=== PATIENT | female | born 1995 | race Hispanic/Latino ===

== ENCOUNTER 2020-01-04 20:41 | Emergency (ER) | payer OTHER ==
[~2020-01-04] VITALS: Ht 160 cm; Wt 104.3 kg
--- OUTSIDE RECORDS SUMMARY | 2020-01-04 20:44 | XMS REPORT ---
[facility] Address Unknown Phone Unavailable Care Team Providers Care Financial Planning Adviser Name Role Phone Unavailable Unavailable Payers Payer Name Policy Type Policy Number Effective Date Expiration Date Problems This patient has no known problems. Allergies, Adverse Reactions, Alerts Allergy Name Allergy Type Status Severity Reaction(s) Onset Date Inactive Date Treating Clinician Comments No Known Allergies DA Active U 2019-06-08 00:00:00 Medications This patient has no known medications. Results Test Description Test Time Test Comments Text Results Atomic Results Result Comments AB LIVER-KIDNEY MICROSOMAL 2019-06-10 14:43:00 AB LIVER-KIDNEY MICROSOMAL (test code=MICRLKAB) 1.0 Units 0.0-20.0 Negative 0.0 - 20.0 Equivocal 20.1 - 24.9 Positive >24.9LKM type 1 antibodies are detected in patients withautoimmune hepatitis type 2 and in up to 8% ofpatients with chronic HCV infection.Performed At: [facility] [id number] Lozoya MD Ph:[phone] CBC W/AUTO [id number] 06:13:00* Test Item Value Reference Range Comments WHITE BLOOD CELL (test code=WBC) 11.4 K/mm3 6.6-12.1 Results verified by repeat analysis RED BLOOD CELL (test code=RBC) 3.07 M/mm3 3.45-5.01 HEMOGLOBIN (test code=HGB) 9.3 g/dL 10.7-13.9 HEMATOCRIT (test code=HCT) 27.4 % 32.1-42.1 MEAN CELL VOLUME (test code=MCV) 89 fL 84.1-94.8 MEAN CELL HGB (test code=MCH) 30.3 pg 27-35 MEAN CELL HGB CONCETRATION (test code=MCHC) 33.9 gm/dL 32.2-34.1 RED CELL DISTRIBUTION WIDTH (test code=RDW) 13.2 % 12.4-16.5 PLATELET COUNT (test code=PLT) 211 K/mm3 133-385 IMMATURE PLATELET FRACTION (test code=IPF) 0.0 % 0.0-10.8 MEAN PLATELET VOLUME (test code=MPV) 10.9 fl 9.1-12.7 NEUTROPHIL % (test code=NT%) 80.1 % 56.5-79.4 LYMPHOCYTE % (test code=LY%) 12.6 % 14.3-34.3 MONOCYTE % (test code=MO%) 6.5 % 5.1-10.4 EOSINOPHIL % (test code=EO%) 0.0 % 0.1-3.0 BASOPHIL % (test code=BA%) 0.2 % 0.1-1.0 NEUTROPHIL # (test code=NT#) 9.2 K/mm3 LYMPHOCYTE # (test code=LY#) 1.4 K/mm3 MONOCYTE # (test code=MO#) 0.7 K/mm3 EOSINOPHIL # (test code=EO#) 0 K/mm3 BASOPHIL # (test code=BA#) 0.0 K/mm3 RBC MORPHOLOGY REQUIRED (test code=RBCM) NORMAL NORMAL PLATELET MORPHOLOGY REQUIRED (test code=PLTMR) NORMAL NORMAL AG HEPATITIS B [id number] 16:14:00* Test Item Value Reference Range Comments AG HEPATITIS B SURFACE (test code=HBSAG) NONREACTIVE NONREACTIVE IS CONSENT FORM SIGNED FOR HIV TESTING? YAB HEPATITIS C [id number] 16:14:00* Test Item Value Reference Range Comments AB HEPATITIS C (test code=HCVAB) NONREACTIVE NONREACTIVE SIGNAL TO CUTOFF (test code=CUTOFF) <0.02 <0.80 IS CONSENT FORM SIGNED FOR HIV TESTING? YAB [id number] 16:14:00* Test Item Value Reference Range Comments AB TREPONEMA (test code=TREPAB) NONREACTIVE NONREACTIVE IS CONSENT FORM SIGNED FOR HIV TESTING? YAB HIV 1 16:14:00* Test Item Value Reference Range Comments AB HIV 1 2 (test code=NFM51RM) NONREACTIVE NONREACTIVE Done by [employer] HIV Ag/Ab Combo Screen IS CONSENT FORM SIGNED FOR HIV TESTING? YAG HEPATITIS B [id number] 15:46:00* Test Item Value Reference Range Comments AG HEPATITIS B SURFACE (test code=HBSAG) NONREACTIVE NONREACTIVE IS CONSENT FORM SIGNED FOR HIV TESTING? YAB HEPATITIS C [id number] 15:46:00* Test Item Value Reference Range Comments AB HEPATITIS C (test code=HCVAB) NONREACTIVE SIGNAL TO CUTOFF (test code=CUTOFF) <0.80 IS CONSENT FORM SIGNED FOR HIV TESTING? YAB [id number] 15:46:00* Test Item Value Reference Range Comments AB TREPONEMA (test code=TREPAB) NONREACTIVE NONREACTIVE IS CONSENT FORM SIGNED FOR HIV TESTING? YAB HIV 1 15:46:00* Test Item Value Reference Range Comments AB HIV 1 2 (test code=JBC08ZS) NONREACTIVE IS CONSENT FORM SIGNED FOR HIV TESTING? YCOMPREHENSIVE METABOLIC [id number] 15:11:00* Test Item Value Reference Range Comments SODIUM (test code=NA) 139 mEq/L 135-145 POTASSIUM (test code=K) 4.2 mEq/L 3.5-5.0 CHLORIDE (test code=CL) 108 mEq/L 100-115 CARBON DIOXIDE (test code=CO2) 20 mEq/L 22-31 ANION GAP (test code=GAP) 15.20 10-20 GLUCOSE (test code=GLU) 82 mg/dL 65-110 BLOOD UREA NITROGEN (test code=BUN) 9 mg/dL 7-18 GLOMERULAR FILTRATION RATE (test code=GFR) 104 ml/min >60 CREATININE (test code=CREAT) 0.7 mg/dL 0.5-1.0 TOTAL PROTEIN (test code=PROT) 5.8 gm/dL 6.3-8.2 ALBUMIN (test code=ALB) 2.4 gm/dL 3.4-4.8 CALCIUM (test code=CA) 8.9 mg/dL 8.4-10.2 BILIRUBIN TOTAL (test code=BILT) 0.2 mg/dL 0.2-1.0 SGOT/AST (test code=AST) 20 units/L 15-37 SGPT/ALT (test code=ALT) 19 units/L 12-78 ALKALINE PHOSPHATASE TOTAL (test code=ALKP) 184 units/L 46-116 CBC W/AUTO [id number] 15:10:00* Test Item Value Reference Range Comments WHITE BLOOD CELL (test code=WBC) 7.3 K/mm3 6.6-12.1 RED BLOOD CELL (test code=RBC) 3.69 M/mm3 3.45-5.01 HEMOGLOBIN (test code=HGB) 10.9 g/dL 10.7-13.9 HEMATOCRIT (test code=HCT) 33.7 % 32.1-42.1 MEAN CELL VOLUME (test code=MCV) 91 fL 84.1-94.8 MEAN CELL HGB (test code=MCH) 29.5 pg 27-35 MEAN CELL HGB CONCETRATION (test code=MCHC) 32.3 gm/dL 32.2-34.1 RED CELL DISTRIBUTION WIDTH (test code=RDW) 13.6 % 12.4-16.5 PLATELET COUNT (test code=PLT) 221 K/mm3 133-385 IMMATURE PLATELET FRACTION (test code=IPF) 0.0 % 0.0-10.8 MEAN PLATELET VOLUME (test code=MPV) 11.1 fl 9.1-12.7 NEUTROPHIL % (test code=NT%) 65.0 % 56.5-79.4 LYMPHOCYTE % (test code=LY%) 22.9 % 14.3-34.3 MONOCYTE % (test code=MO%) 10.1 % 5.1-10.4 EOSINOPHIL % (test code=EO%) 0.7 % 0.1-3.0 BASOPHIL % (test code=BA%) 0.6 % 0.1-1.0 NEUTROPHIL # (test code=NT#) 4.7 K/mm3 LYMPHOCYTE # (test code=LY#) 1.7 K/mm3 MONOCYTE # (test code=MO#) 0.7 K/mm3 EOSINOPHIL # (test code=EO#) 0.05 K/mm3 BASOPHIL # (test code=BA#) 0.0 K/mm3 RBC MORPHOLOGY REQUIRED (test code=RBCM) NORMAL NORMAL PLATELET MORPHOLOGY REQUIRED (test code=PLTMR) NORMAL NORMAL PROTHROMBIN [id number] 13:13:00* Test Item Value Reference Range Comments PROTHROMBIN TIME PATIENT (test code=PTP) 10.3 secs 10.4-12.4 THROMBOPLASTIN TIME [id number] 13:13:00* Test Item Value Reference Range Comments THROMBOPLASTIN TIME PARTIAL (test code=PTT) 27.5 secs 22-38 [id number] 13:13:00* Test Item Value Reference Range Comments FIBRINOGEN (test code=FIB) 660 mg/dL 309-268
--- NOTE | 2020-01-04 21:21 | NUR ---
PT BROUGHT BACK INTO TRIAGE FOR ER MD ASSESSMENT AT THIS TIME.
[2020-01-04 21:28] LABS: BILIRUBIN,URINE NEGATIVE (NEGATIVE); CLARITY,URINE SL CLOUDY (CLEAR); COLOR,URINE YELLOW (YELLOW); KETONES,URINE NEGATIVE (NEGATIVE); LEUKOCYTE ESTERASE ,URINE NEGATIVE (NEGATIVE); NITRITE,URINE NEGATIVE (NEGATIVE); PROTEIN,URINE DIPSTICK 1+ (NEGATIVE); URINE UROBILINOGEN 0.2 mg/dL (0.2 - 1)
[2020-01-04 21:38] LABS: BACTERIA,URINE MODERATE /HPF; EPITHELIAL CELLS,URINE MODERATE /LPF
--- NOTE | 2020-01-04 22:58 | Diagnostic Imaging Report ---
EXAMINATION: CHEST 2 VIEWS INDICATION: Chest pain. COMPARISON: None FINDINGS: TUBES and LINES: None. LUNGS: Lungs are well inflated. Lungs are clear. There is no evidence of pneumonia or pulmonary edema. PLEURA: No pleural effusion or pneumothorax. HEART AND MEDIASTINUM: The cardiomediastinal silhouette is unremarkable. BONES AND SOFT TISSUES: No acute osseous lesion. Soft tissues are unremarkable. UPPER ABDOMEN: No free air under the diaphragm. IMPRESSION: No acute thoracic abnormality. Signed by: Dr. Kasey Dutton M.D. on 01/04/2020 10:55 PM
== END 2020-01-04 23:30 | disposition home or self-care (01) ==
LOC: ER 20:41
DX: R10.13 Epigastric pain (principal); K21.9 Gastro-esophageal reflux disease without esophagitis; K29.50 Unspecified chronic gastritis without bleeding
CPT/HCPCS: 71046; 81001; 93005; 99283

== ENCOUNTER 2020-05-24 16:56 | Emergency (ER) | payer OTHER ==
[~2020-05-24] VITALS: Ht 172.7 cm; Wt 102.1 kg
--- OUTSIDE RECORDS SUMMARY | 2020-05-24 17:22 | XMS REPORT | Continuity of Care Document ---
Author Author [facility] t Organization [facility] Address [address] [place] [address] Phone Unavailable Care Team Providers Care Post Graduate Internship Name Role Phone NO, PCP PCP Unavailable Marla PACE Attphys Unavailable Payers Payer Name Policy Type Policy Number Effective Date Expiration Date S ource Problems This patient has no known problems. Allergies, Adverse Reactions, Alerts Allergy Name Allergy Type Status Severity Reaction(s) Onset Date Inacti ve Date Treating Clinician Comments Source No Known Allergies DA Active U 2019-06-08 00:00:00 [facility] Medications This patient has no known medications. Procedures Procedure Date / Time Performed Performing Clinician [facility] e X-ray of chest, two views 2020-01-04 00:00:00 DYLAN PACE [facility] Encounters Start Date/Time End Date/Time Encounter Type Admission Type Attendi [facility] Care Department Encounter ID Source 2020-01-04 20:41:00 2020-01-04 23:30:00 Departed Emergency Room 1 JADYN PACE [facility] [id number] [facility] Results Test Description Test Time Test Comments Results Result Comments Source CHEST 2 VIEWS 2020-01-04 22:53:00 [facility] [address] [place], [place] [address] Patient Name: RITA TATE MR #: [id number] : 1995 Age/Sex: 24/F Req #: [id number] Adm Physician: Ordered by: JADYN PACE MD Report #: [id number] Location: ER Room/Bed: Procedure: [id number] DX/CHEST 2 VIEWS Exam Date: 01/04/20 Exam Time: 2147 REPORT STATUS: Signed EXAMINATION: CHEST 2 VIEWS INDICATION: Chest pain. COMPARISON: None FINDINGS: TUBES and LINES: None. LUNGS: Lungs are well inflated. Lungs are clear. There is no evidence of pneumonia or pulmonary edema. PLEURA: No pleural effusion or pneumothorax. HEART AND MEDIASTINUM: The cardiomediastinal silhouette is unremarkable. BONES AND SOFT TISSUES: No acute osseous lesion. Soft tissues are unremarkable. UPPER ABDOMEN: No free air under the diaphragm. IMPRESSION: No acute thoracic abnormality. Signed by: Dr. Kasey Herrera M.D. on 01/04/2020 10:55 PM Dictated By: EDI HERRERA MD, MD 54 Transcribed By: BALWINDER on 01/04/202254 COPY TO: JADYN PACE MD Urine WBC 2020-01-04 21:38:00 Test Item Urine WBC (test code = 5821-4) NONE 0-5 [facility] [id number] 21:38:00* Test Item Value Reference Range Interpretation Comments Urine RBC (test code = 38768-4) 6-10 0-5 H [facility] [id number] 21:38:00* Test Item Value Reference Range Interpretation Comments Urine Bacteria (test code = 04398-1) MODERATE NONE H [facility] Epithelial [id number] 21:38:00 * Test Item Value Reference Range Interpretation Comments Urine Epithelial Cells (test code = 44657-1) MODERATE NONE [facility] [id number] 21:28:00* Test Item Value Reference Range Interpretation Comments Urine Color (test code = 5778-6) YELLOW YELLOW [facility] [id number] 21:28:00* Test Item Value Reference Range Interpretation Comments Urine Clarity (test code = 25605-9) SL CLOUDY CLEAR [facility] Specific [id number] 21:28:00 * Test Item Value Reference Range Interpretation Comments Urine Specific [place] (test code = 5811-5) 1.030 1.010-1.02 5 H [facility] [id number] 21:28:00* Test Item Value Reference Range Interpretation Comments Urine pH (test code = 56646-7) 5.5 5-7 [facility] Leukocyte [id number] 21:28:00* Test Item Value Reference Range Interpretation Comments Urine Leukocyte Esterase (test code = 5799-2) NEGATIVE NEGATIVE [facility] [id number] 21:28:00* Test Item Value Reference Range Interpretation Comments Urine Nitrite (test code = 77350-8) NEGATIVE NEGATIVE [facility] [id number] 21:28:00* Test Item Value Reference Range Interpretation Comments Urine Protein (test code = 5804-0) 1+ NEGATIVE H [facility] Glucose (UA)2020-01-04 21:28:00* Test Item Value Reference Range Interpretation Comments Urine Glucose (UA) (test code = 2349-9) NEGATIVE NEGATIVE [facility] [id number] 21:28:00* Test Item Value Reference Range Interpretation Comments Urine Ketones (test code = 15697-5) NEGATIVE NEGATIVE [facility] [id number] 21:28:00* Test Item Value Reference Range Interpretation Comments Urine Urobilinogen (test code = 73942-5) 0.2 0.2-1 [facility] [id number] 21:28:00* Test Item Value Reference Range Interpretation Comments Urine Bilirubin (test code = 1978-6) NEGATIVE NEGATIVE [facility] [id number] 21:28:00* Test Item Value Reference Range Interpretation Comments Urine Blood (test code = 39503-0) 2+ NEGATIVE H [facility]IDNEY [id number] 14:43:00* Test Item Value Reference Range Interpretation Comments AB LIVER-KIDNEY MICROSOMAL (test code = MICRLKAB) 1.0 Units 0.0- 20.0 Negative 0.0 - 20.0 Equivocal 20.1 - 24.9 Positive >24.9LKM type 1 antibodies are detected in patients withautoimmune hepatitis type 2 and in up to 8% ofpatients with chronic HCV infection.Performed At: [facility] [id number] Sanjai MD Ph:[phone] CBC W/AUTO [id number] 06:13:00* Test Item Value Reference Range Interpretation Comments WHITE BLOOD CELL (test code = WBC) 11.4 K/mm3 6.6-12.1 Results verified by repeat analysis RED BLOOD CELL (test code = RBC) 3.07 M/mm3 3.45-5.01 L HEMOGLOBIN (test code = HGB) 9.3 g/dL 10.7-13.9 L HEMATOCRIT (test code = HCT) 27.4 % 32.1-42.1 L MEAN CELL VOLUME (test code = MCV) 89 fL 84.1-94.8 N MEAN CELL HGB (test code = MCH) 30.3 pg 27-35 N MEAN CELL HGB CONCETRATION (test code = MCHC) 33.9 gm/dL 32.2-34. 1 N RED CELL DISTRIBUTION WIDTH (test code = RDW) 13.2 % 12.4-16. 5 N PLATELET COUNT (test code = PLT) 211 K/mm3 133-385 N IMMATURE PLATELET FRACTION (test code = IPF) 0.0 % 0.0-10.8 N MEAN PLATELET VOLUME (test code = MPV) 10.9 fl 9.1-12.7 N NEUTROPHIL % (test code = NT%) 80.1 % 56.5-79.4 H LYMPHOCYTE % (test code = LY%) 12.6 % 14.3-34.3 L MONOCYTE % (test code = MO%) 6.5 % 5.1-10.4 N EOSINOPHIL % (test code = EO%) 0.0 % 0.1-3.0 L BASOPHIL % (test code = BA%) 0.2 % 0.1-1.0 N NEUTROPHIL # (test code = NT#) 9.2 K/mm3 LYMPHOCYTE # (test code = LY#) 1.4 K/mm3 MONOCYTE # (test code = MO#) 0.7 K/mm3 EOSINOPHIL # (test code = EO#) 0 K/mm3 BASOPHIL # (test code = BA#) 0.0 K/mm3 RBC MORPHOLOGY REQUIRED (test code = RBCM) NORMAL NORMAL PLATELET MORPHOLOGY REQUIRED (test code = PLTMR) NORMAL BECK L AG HEPATITIS B [id number] 16:14:00* Test Item Value Reference Range Interpretation Comments AG HEPATITIS B SURFACE (test code = HBSAG) NONREACTIVE NONREACTIVE IS CONSENT FORM SIGNED FOR HIV TESTING? YAB HEPATITIS C [id number] 16:14:00* Test Item Value Reference Range Interpretation Comments AB HEPATITIS C (test code = HCVAB) NONREACTIVE NONREACTIVE SIGNAL TO CUTOFF (test code = CUTOFF) <0.02 <0.80 N IS CONSENT FORM SIGNED FOR HIV TESTING? YAB [id number] 16:14:00* Test Item Value Reference Range Interpretation Comments AB TREPONEMA (test code = TREPAB) NONREACTIVE NONREACTIVE IS CONSENT FORM SIGNED FOR HIV TESTING? YAB HIV 1 16:14:00* Test Item Value Reference Range Interpretation Comments AB HIV 1 2 (test code = ISG05PI) NONREACTIVE NONREACTIVE Done by [employer] HIV Ag/Ab Combo Screen IS CONSENT FORM SIGNED FOR HIV TESTING? YAG HEPATITIS B [id number] 15:46:00* Test Item Value Reference Range Interpretation Comments AG HEPATITIS B SURFACE (test code = HBSAG) NONREACTIVE NONREACTIVE IS CONSENT FORM SIGNED FOR HIV TESTING? YAB HEPATITIS C [id number] 15:46:00* Test Item Value Reference Range Interpretation Comments AB HEPATITIS C (test code = HCVAB) NONREACTIVE SIGNAL TO CUTOFF (test code = CUTOFF) <0.80 IS CONSENT FORM SIGNED FOR HIV TESTING? YAB [id number] 15:46:00* Test Item Value Reference Range Interpretation Comments AB TREPONEMA (test code = TREPAB) NONREACTIVE NONREACTIVE IS CONSENT FORM SIGNED FOR HIV TESTING? YAB HIV 1 15:46:00* Test Item Value Reference Range Interpretation Comments AB HIV 1 2 (test code = TTD59SL) NONREACTIVE IS CONSENT FORM SIGNED FOR HIV TESTING? YCOMPREHENSIVE METABOLIC [id number] 15:11:00* Test Item Value Reference Range Interpretation Comments SODIUM (test code = NA) 139 mEq/L 135-145 N POTASSIUM (test code = K) 4.2 mEq/L 3.5-5.0 N CHLORIDE (test code = CL) 108 mEq/L 100-115 N CARBON DIOXIDE (test code = CO2) 20 mEq/L 22-31 L ANION GAP (test code = GAP) 15.20 10-20 N GLUCOSE (test code = GLU) 82 mg/dL 65-110 N BLOOD UREA NITROGEN (test code = BUN) 9 mg/dL 7-18 N GLOMERULAR FILTRATION RATE (test code = GFR) 104 ml/min >60 N CREATININE (test code = CREAT) 0.7 mg/dL 0.5-1.0 N TOTAL PROTEIN (test code = PROT) 5.8 gm/dL 6.3-8.2 L ALBUMIN (test code = ALB) 2.4 gm/dL 3.4-4.8 L CALCIUM (test code = CA) 8.9 mg/dL 8.4-10.2 N BILIRUBIN TOTAL (test code = BILT) 0.2 mg/dL 0.2-1.0 N SGOT/AST (test code = AST) 20 units/L 15-37 N SGPT/ALT (test code = ALT) 19 units/L 12-78 N ALKALINE PHOSPHATASE TOTAL (test code = ALKP) 184 units/L 46-116 H CBC W/AUTO [id number] 15:10:00* Test Item Value Reference Range Interpretation Comments WHITE BLOOD CELL (test code = WBC) 7.3 K/mm3 6.6-12.1 N RED BLOOD CELL (test code = RBC) 3.69 M/mm3 3.45-5.01 N HEMOGLOBIN (test code = HGB) 10.9 g/dL 10.7-13.9 N HEMATOCRIT (test code = HCT) 33.7 % 32.1-42.1 N MEAN CELL VOLUME (test code = MCV) 91 fL 84.1-94.8 N MEAN CELL HGB (test code = MCH) 29.5 pg 27-35 N MEAN CELL HGB CONCETRATION (test code = MCHC) 32.3 gm/dL 32.2-34. 1 N RED CELL DISTRIBUTION WIDTH (test code = RDW) 13.6 % 12.4-16. 5 N PLATELET COUNT (test code = PLT) 221 K/mm3 133-385 N IMMATURE PLATELET FRACTION (test code = IPF) 0.0 % 0.0-10.8 N MEAN PLATELET VOLUME (test code = MPV) 11.1 fl 9.1-12.7 N NEUTROPHIL % (test code = NT%) 65.0 % 56.5-79.4 N LYMPHOCYTE % (test code = LY%) 22.9 % 14.3-34.3 N MONOCYTE % (test code = MO%) 10.1 % 5.1-10.4 N EOSINOPHIL % (test code = EO%) 0.7 % 0.1-3.0 N BASOPHIL % (test code = BA%) 0.6 % 0.1-1.0 N NEUTROPHIL # (test code = NT#) 4.7 K/mm3 LYMPHOCYTE # (test code = LY#) 1.7 K/mm3 MONOCYTE # (test code = MO#) 0.7 K/mm3 EOSINOPHIL # (test code = EO#) 0.05 K/mm3 BASOPHIL # (test code = BA#) 0.0 K/mm3 RBC MORPHOLOGY REQUIRED (test code = RBCM) NORMAL NORMAL PLATELET MORPHOLOGY REQUIRED (test code = PLTMR) NORMAL BECK L PROTHROMBIN [id number] 13:13:00* Test Item Value Reference Range Interpretation Comments PROTHROMBIN TIME PATIENT (test code = PTP) 10.3 secs 10.4-12.4 L THROMBOPLASTIN TIME [id number] 13:13:00* Test Item Value Reference Range Interpretation Comments THROMBOPLASTIN TIME PARTIAL (test code = PTT) 27.5 secs 22-38 N [id number] 13:13:00* Test Item Value Reference Range Interpretation Comments FIBRINOGEN (test code = FIB) 660 mg/dL 309-518 H
--- NOTE | 2020-05-24 17:40 | NUR ---
PATIENT TO ROOM 10, [place] AT BEDSIDE SPEAKING WITH PATIENTS
[2020-05-24 18:01] LABS: BASOPHILS % 0.4 % (0.0-1.0); EOSINOPHILS # (AUTO) 0.1 (0.0-0.4); EOSINOPHILS % 0.6 % (0.0-6.0); HEMATOCRIT 34.7 % (34.2-44.1); HEMOGLOBIN 11.6 g/dL (12.0-16.0); LYMPHOCYTES # (AUTO) 2.1 (1.0-3.2); MEAN CORPUSCULAR HEMOGLOBIN 28.5 pg (28-32); MEAN CORPUSCULAR HGB CONC 33.4 g/dL (31-35); MEAN CORPUSCULAR VOLUME 85.3 fL (81-99); MONOCYTES # (AUTO) 0.8 (0.2-0.8); MONOCYTES % 7.4 % (4.4-11.3); NEUTROPHILS # (AUTO) 7.5 (2.1-6.9); NEUTROPHILS % 71.1 % (38.7-80.0); PLATELET COUNT 295 x10e3/uL (140-360); RED BLOOD COUNT 4.07 x10e6/uL (3.6-5.1); RED CELL DISTRIBUTION WIDTH 13.6 % (11.7-14.4)
[2020-05-24 18:09] LABS: PARTIAL THROMBOPLASTIN TIME 29.9 seconds (23.8-35.5)
[2020-05-24 18:14] LABS: INR 0.87; PROTHROMBIN TIME 12.2 seconds (11.9-14.5)
[2020-05-24 18:16] LABS: ALANINE AMINOTRANSFERASE 16 IU/L (0-55); ALBUMIN 2.7 g/dL (3.5-5.0); ALBUMIN/GLOBULIN RATIO 0.7 (0.8-2.0); ALKALINE PHOSPHATASE 90 IU/L (40-150); ANION GAP 12.7 mmol/L (8-16); BLOOD UREA NITROGEN 5 mg/dL (7-26); BUN/CREATININE RATIO 8 (6-25); CALCIUM 8.5 mg/dL (8.4-10.2); CARBON DIOXIDE 19 mmol/L (22-29); CHLORIDE 109 mmol/L (98-107); CREATININE, SERUM 0.63 mg/dL (0.57-1.11); EST GLOMERULAR FILTRATION RATE > 60 ML/MIN (60-); GLUCOSE 97 mg/dL (74-118); POTASSIUM 3.7 mmol/L (3.5-5.1); SODIUM 137 mmol/L (136-145)
--- NOTE | 2020-05-24 18:26 | Emergency Department Note ---
History of Present Illnes History of Present Illness Chief Complaint: Chest Pain History of Present Illness This is a 24 year old female REPORTS THAT MID STERNAL CHEST PAIN THAT RADIATES THROUGH BILATERAL CHEST AND INTO BILATERAL MID BACK, STARTED TWO HOURS DEVELOPMENT SCIENTIST. PT REPORTS BEING FIVE MONTH AND HAVING ROUTINE OB APPOINTMENTS. PT IN NO OBVIOUS DISTRESS. REPORTS PAIN 5/10 AT WORST. Historian: Patient Arrival Mode: Car Onset (how long ago): hour(s) (2) Location: Chest diffusely Quality: Dull Radiation: Reports back Severity: mild Onset quality: gradual Duration (how long): hour(s) (2) Timing of current episode: constant Progression: unchanged Chronicity: recurrent Relieving factors: none Exacerbating factors: none Treatments prior to arrival: none (DEE GONZALEZ MD) Past Medical/Family History Physician Review I have reviewed the patient's past medical and family history. Any updates have been documented here. 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 Past Surgical History: None (DEE GONZALEZ MD) Social History Smoking Cessation: Never Smoker Counseling Performed: No Alcohol Use: None Any Illegal Drug Use: No Physically hurt or threatened: No (DEE GONZALEZ MD) Other Last Tetanus: UTD Any Pre-Existing Lines (PICC,: No (DEE GONZALEZ MD) Review of Systems Review of Systems Constitutional: Reports no symptoms EENTM: Reports no symptoms Cardiovascular: Reports no symptoms, Reports chest pain Respiratory: Reports no symptoms Gastrointestinal: Reports no symptoms Genitourinary: Reports no symptoms Musculoskeletal: Reports no symptoms Integumentary: Reports no symptoms Neurological: Reports no symptoms Psychological: Reports no symptoms Endocrine: Reports no symptoms Hematological/Lymphatic: Reports no symptoms (DEE GONZALEZ MD) Physical Exam Related Data Allergies: Coded Allergies: No Known Allergies (Unverified , 01/04/20) Triage Vital Signs Vital Signs Date Time Temp Pulse Resp B/P (MAP) Pulse Ox O2 Delivery O2 Flow Rate FiO2 05/24/20 17:12 98.4 75 17 139/94 100 05/24/20 17:19 Room Air (DEE GONZALEZ MD) Physical Exam CONSTITUTIONAL Constitutional: Present well-developed, Present well-nourished HENT HENT: Present normocephalic, Present atraumatic, Present oropharynx clear/moist, Present nose normal HENT L/R: Present left ext ear normal, Present right ext ear normal EYES Eyes: Reports PERRL, Reports conjunctivae normal NECK Neck: Present ROM normal PULMONARY Pulmonary: Present effort normal, Present breath sounds normal CARDIOVASCULAR Cardiovascular: Present regular rhythm, Present heart sounds normal, Present capillary refill normal, Present normal rate GASTROINTESTINAL Abdominal: Present soft, Present nontender, Present bowel sounds normal GENITOURINARY Genitourinary: Present exam deferred SKIN Skin: Present warm, Present dry MUSCULOSKELETAL Musculoskeletal: Present ROM normal NEUROLOGICAL Neurological: Present alert, Present oriented x 3, Present no gross motor or sensory deficits PSYCHOLOGICAL Psychological: Present mood/affect normal, Present judgement normal (DEE GONZALEZ MD) Results Laboratory Result Diagram: 05/24/20 1754 05/24/20 1754 Laboratory Laboratory Tests Test 05/24/20 17:54 White Blood Count 10.55 x10e3/uL (4.8-10.8) Red Blood Count 4.07 x10e6/uL (3.6-5.1) Hemoglobin 11.6 g/dL (12.0-16.0) Hematocrit 34.7 % (34.2-44.1) Mean Corpuscular Volume 85.3 fL (81-99) Mean Corpuscular Hemoglobin 28.5 pg (28-32) Mean Corpuscular Hemoglobin Concent 33.4 g/dL (31-35) Red Cell Distribution Width 13.6 % (11.7-14.4) Platelet Count 295 x10e3/uL (140-360) Neutrophils (%) (Auto) 71.1 % (38.7-80.0) Lymphocytes (%) (Auto) 20.0 % (18.0-39.1) Monocytes (%) (Auto) 7.4 % (4.4-11.3) Eosinophils (%) (Auto) 0.6 % (0.0-6.0) Basophils (%) (Auto) 0.4 % (0.0-1.0) Neutrophils # (Auto) 7.5 (2.1-6.9) Lymphocytes # (Auto) 2.1 (1.0-3.2) Monocytes # (Auto) 0.8 (0.2-0.8) Eosinophils # (Auto) 0.1 (0.0-0.4) Basophils # (Auto) 0.0 (0.0-0.1) Absolute Immature Granulocyte (auto 0.05 x10e3/uL (0-0.1) Prothrombin Time 12.2 seconds (11.9-14.5) Prothromb Time International Ratio 0.87 Activated Partial Thromboplast Time 29.9 seconds (23.8-35.5) Sodium Level 137 mmol/L (136-145) Potassium Level 3.7 mmol/L (3.5-5.1) Chloride Level 109 mmol/L (98-107) Carbon Dioxide Level 19 mmol/L (22-29) Anion Gap 12.7 mmol/L (8-16) Blood Urea Nitrogen 5 mg/dL (7-26) Creatinine 0.63 mg/dL (0.57-1.11) Estimat Glomerular Filtration Rate > 60 ML/MIN (60-) BUN/Creatinine Ratio 8 (6-25) Glucose Level 97 mg/dL (74-118) Calcium Level 8.5 mg/dL (8.4-10.2) Total Bilirubin 0.1 mg/dL (0.2-1.2) Aspartate Amino Transf (AST/SGOT) 12 IU/L (5-34) Alanine Aminotransferase (ALT/SGPT) 16 IU/L (0-55) Alkaline Phosphatase 90 IU/L (40-150) Total Protein 6.7 g/dL (6.5-8.1) Albumin 2.7 g/dL (3.5-5.0) Globulin 4.0 g/dL (2.3-3.5) Albumin/Globulin Ratio 0.7 (0.8-2.0) Lab results reviewed: Yes (DEE GONZALEZ MD) Imaging Imaging results reviewed: Yes (DEE GONZALEZ MD) Imaging results reviewed: Yes Impressions [place] [id number] Patient Name: RITA TATE MR #: [id number] : 1995 Age/Sex: 24/F Req #: [id number] Adm Physician: Ordered by: Dee Gonzalez MD Report #: [id number] Location: ER Room/Bed: Procedure: [id number] DX/CHEST SINGLE (PORTABLE) Exam Date: Exam Time: REPORT STATUS: Signed Examination: Single AP view of the chest. COMPARISON: None. INDICATION: Chest pain DISCUSSION: Lines/tubes: None. Lungs: The lungs are well inflated and clear. No pneumonia or pulmonary edema. Pleura: No pleural effusion or pneumothorax. Heart and mediastinum: The heart and the mediastinum are unremarkable. Bones and soft tissues: No acute bony abnormalities. IMPRESSION: 1. No acute cardiopulmonary abnormalities. Signed by: Dr. Thais Billy M.D. on 05/24/2020 7:16 PM Dictated By: THAIS BILLY MD 15 Transcribed By: BALWINDER on 05/24/201915 COPY TO: DEE GONZALEZ MD~ (TAYLER BALES DO) Procedures 12 Lead ECG Interpretation ECG Interpretation : Impregnation Operator: Interpreted by ED physician Rhythm: sinus rhythm Rate: normal QRS axis: normal ST segments normal: Yes T waves normal: Yes Clinical Impression: normal ECG (DEE GONZALEZ MD) Assessment & Plan Medical Decision Making MDM 24-year-old female who is 5 months presenting for diffuse chest pain that started 2 hours ago. She has had this in the past and was diagnosed with reflux. She does not take any medications for this except for Tums occasionally. Initial differential significant for pneumonia versus pulmonary embolism versus ACS versus reflux versus muscular skeletal pain. EKG is well-appearing. I discussed options including CT scan of the chest to rule out pulmonary embolism. Clinical suspicion is low for this and patient wishes to refrain from CT scan at this time. We'll perform labs and chest x-ray and reevaluate. Handed patient over to Dr. Bales at 1825 (DEE GONZALEZ MD) MDM Patient seen at bedside NAD. Unlabored respirations with oxygen saturation at 100 % RA. (TAYLER BALES DO) Assessment & Plan Final Impression: (1) Atypical chest pain (TAYLER BALES DO) Depart Disposition: HOME, SELF-CARE Last Vital Signs Date Time Temp Pulse Resp B/P (MAP) Pulse Ox O2 Delivery O2 Flow Rate FiO2 05/24/20 18:01 98.4 05/24/20 17:34 69 16 100 05/24/20 17:19 Room Air (DEE GONZLAEZ MD) DEE GONZALEZ MD May 24, 2020 18:26 TAYLER BALES DO May 24, 2020 19:27
--- NOTE | 2020-05-24 19:19 | Diagnostic Imaging Report ---
Examination: Single AP view of the chest. COMPARISON: None. INDICATION: Chest pain DISCUSSION: Lines/tubes: None. Lungs: The lungs are well inflated and clear. No pneumonia or pulmonary edema. Pleura: No pleural effusion or pneumothorax. Heart and mediastinum: The heart and the mediastinum are unremarkable. Bones and soft tissues: No acute bony abnormalities. IMPRESSION: 1. No acute cardiopulmonary abnormalities. Signed by: Dr. Abdelrahman Shaffer M.D. on 05/24/2020 7:16 PM
[2020-05-24 19:51] VITALS: BP 127/72
== END 2020-05-24 20:03 | disposition home or self-care (01) ==
LOC: ER 17:19
DX: R07.89 Other chest pain (principal); Z33.1 Pregnant state, incidental
CPT/HCPCS: 36415; 71045; 80053; 85025; 85610; 85730; 93005; 99284